=== PATIENT | female | born 1945 | race Caucasian/White ===

== ENCOUNTER 2023-09-25 15:56 | Outpatient (CLI) | payer BC, SELFPAY ==
--- NOTE | 2023-09-25 15:00 | DI.RAD_ITS ---
Exam(s) XR KNEE RT 3V AP,LAT,AZALEA EXAM: XR KNEE RT 3V AP,LAT,AZALEA CLINICAL HISTORY: RIGHT KNEE PAIN. TECHNIQUE: 2D digital imaging was performed of the right knee. Three views obtained. AP, lateral an d PA tunnel views were obtained. COMPARISON: No exams were available for comparison FINDINGS: BONES: No acute fracture is present. No bony destructive lesion is seen. There is an enthesophyte at the anterior patella. JOINTS: There are degenerative changes involving the knee characterized by joint space narrowing and osteophytes. No joint effusion is seen. SOFT TISSUE: Vascular calcifications are present. Vascular clips are seen in the soft tissues of the lower leg. IMPRESSION: Degenerative changes of the knee. DATA REPOSITORY: RADIATION DOSE DELIVERED:
== END 2023-09-25 15:57 | disposition home or self-care (01) ==
LOC: DIORS 15:56
PROVIDERS: PCP Internal Medicine; Visit Provider Student in an Organized Health Care Education/Training Program
DX: M17.11 Unilateral primary osteoarthritis, right knee (principal)
CPT/HCPCS: 73562

== ENCOUNTER 2024-01-23 11:13 | Outpatient (CLI) | payer BC, MEDICARE, SELFPAY ==
[2024-01-23 11:25] VITALS: BP 117/67; PULSE 54; RESP 20; TEMP 36.7; O2SAT 98
--- NOTE | 2024-01-23 11:55 | DI.RAD_ITS ---
Exam(s) XR PAIN CLINIC FLUORO JOINT IN EXAM: XR PAIN CLINIC FLUORO JOINT IN CLINICAL HISTORY: DX: Right knee Osteoarthritis. TECHNIQUE: Fluoroscopy was provided for the referring physician for guidance with performing pain cl inic injection procedure. COMPARISON: No exams were available for comparison FINDINGS: Please see procedure note for details. Fluoro time: 16.0 seconds RADIATION DOSE DELIVERED: mei Duckworth=1.32 mGy
[2024-01-23 11:56] VITALS: BP 127/45; PULSE 60; RESP 17; O2SAT 98
[2024-01-23] MEDS: Nerve Block Tray 1 EACH MC (11:57)
[2024-01-23] MEDS: Hylan G-F 20 48 MG/6 ML SYR IU (11:57)
[2024-01-23] MEDS: Lidocaine 2% Pres-Free 5 ML VIAL IJ (11:57)
[2024-01-23] MEDS: Omnipaque 240 MG/ML 50 ML BTL IJ (11:58)
--- NOTE | 2024-01-23 12:07 | PDOC.PAIN_ITS ---
Date of service: 01/23/24 Time of Service: 12:07 Pain Managment Procedure Note Procedure Note Procedure Note: PROCEDURE NOTE RIGHT INTRA-ARTICULAR KNEE JOINT SYNVISC INJECTION Date of Service: January 23, 2024 Patient:Tanya Naik? Provider:? Moshe Andino DO, MPH Tanya Willard has been [facility] to [facility] for RIGHT intra-articular knee joint injection. Pre-operative diagnosis: Knee Osteoarthritis Post-operative diagnosis: Same Pre-procedure pain: VAS=10/10 COMMENTS: She was previously evaluated. Tanya?was interviewed and the medical record was reviewed.? There were no medical, pharmacologic, radiographic or other structural contraindications to attempting fluoroscopically guided RIGHT intra-articular knee joint injection.? Risks and expected side effects as well as potential benefit of the procedure were reviewed with Tanya, and the patient's voiced concerns were addressed.? The printed consent form was signed.? Standard time-out procedure was performed. Tanya was placed in the supine position on the fluoroscopy table and the pulse oximeter was applied. The skin entry point for approaching superolateral aspect of the RIGHT patellafemoral area was identified under the most advantageous fluoroscopic view and marked. Following thorough Chlorhexadine preparation of the skin and draping, 1% lidocaine infiltration of the skin entry point and subcutaneous tissues was accomplished using a 1.5 25G needle. Next, the 1.5 25G needle was advanced to the center of the patella in a lateral to medial approach under fluoroscopic guidance into the RIGHT knee joint. Intra-articular placement was confirmed by a clear arthrogram resulting from the injection of 2 ml Omnipaque 240. Next, 6 cc of Synvisc-One was injected and this was followed by 3 mls of 1% Lidocaine into the joint. (48 mls of Omnipaque was wasted). There was no unusual discomfort expressed by Tanya. The needle was withdrawn without difficulty. Tanya was observed and was without hemodynamic, neurologic, or allergic reactions.? Fluoroscopic images were digitally archived. Tanya's vital signs were stable throughout the procedure and were as recorded in the docflowsheet by the nursing staff. If given, dosages of intravenous drugs for anxiolysis and analgesia were documented in MAR. Follow up plans and appointments were discussed with Tanya.? Post procedure instruction was given as documented in nursing documentation and having met discharge criteria, T[facility] was [facility]. COMMENTS: No apparent complications. Post-procedure pain: VAS= 0/10. Tanya to contact [facility] as needed. If at least 50% improvement in pain and/or function for at least 3 months is achieved, this procedure can be repeated. I personally completed the entire procedure. MOSHE ANDINO DO, MPH [employer]BPM[employer]R - Subspecialty board certification in Pain Medicine [facility] [facility]
== END 2024-01-23 11:14 | disposition home or self-care (01) ==
LOC: PC 11:14
PROVIDERS: PCP Internal Medicine; Visit Provider Preventive Medicine Occupational Medicine
DX: M17.11 Unilateral primary osteoarthritis, right knee
CPT/HCPCS: 20610; 77002; J7325; Q9967